=== PATIENT | female | born 2000 | race African-American/Black ===

== ENCOUNTER 2024-10-06 16:35 | Emergency (ER) | payer SELFPAY ==
[~2024-10-06] VITALS: Ht 162.6 cm; Wt 75.0 kg
[2024-10-06 18:35] VITALS: BP 132/78; PULSE 86; RESP 16; TEMP 97.5; O2SAT 98
[2024-10-06] MEDS ORDERED: ACET500T58 PO (18:35)
[2024-10-06] MEDS ORDERED: AMOX875T4 PO (18:35)
--- NOTE | 2024-10-06 18:35 | ED.PDOC ---
Eye-HPI HPI Comments 24-year-old female presents to ER with complaints of foreign body to throat x1 day. Patient reports that she was leaning back eating hot Cheetos at 3:30 p.m. prior to arrival to ER when she felt sensation of a hot Cheeto getting stuck in her throat that has been persistent since prompting her to come to ER for further evaluation. Denies choking. Patient presents to ER ambulatory on arrival, speaking in clear and complete sentences, in no distress with vitals stable and denies any pain. Notes she is able to swallow but does have sensation of foreign body to throat upon doing so. Denies shortness of breath, n/v, chest pain or any further symptoms/complaints Chief Complaint: Foreign Body Time Seen by MD: 18:04 Primary Care Provider: NONE Reviewed Notes: Nurses Notes, Medications, Allergies Allergies: Coded Allergies: NO KNOWN ALLERGIES (Unverified , 10/06/24) Home Meds Active Scripts Acetaminophen (Acetaminophen) 500 Mg Tab, 500 MG PO Q4HPRN, #30 TAB 0 Refills Prov:HAYLEY DAMON 10/06/24 Amoxicillin & Pot Clavulanate (Amoxicillin/Potassium Cla) 875 Mg Tab, 1 TAB PO BID for 7 Days, #14 TAB 0 Refills Prov:HAYLEY DAMON 10/06/24 Information Source: Patient Mode of Arrival: Ambulatory Past Medical History PAST MEDICAL HISTORY: Denies Surgical History: Denies all surgeries Family History Family History: Unknown Social History Lives In: Home Constitutional: denies: chills, diaphoresis, fatigue, fever, malaise, sweats, weakness, others EENTM: reports: others (As stated in HPI) Respiratory: denies: cough, hemoptysis, orthopnea, SOB at rest, shortness of breath, SOB with excertion, stridor, wheezing, others Cardiovascular: denies: chest pain, dizzy spells, diaphoresis, Dyspnea on exertion, edema, irregular heart beat, left arm pain, lightheadedness, palpitations, PND, syncope, others Gastrointestinal: denies: abdomen distended, abdominal pain, blood streaked bowels, constipated, diarrhea, dysphagia, difficulty swallowing, hematemesis, melena, nausea, poor appetite, poor fluid intake, rectal bleeding, rectal pain, vomiting, others Genitourinary: denies: abnormal vagina bleeding, burning, dyspareunia, dysuria, flank pain, frequency, hematuria, incontinence, pain, , vagina discharge, urgency, others Neurological: denies: dizziness, fainting, headache, left sided numbness, left sided weakness, numbness, paresthesia, pre-existing deficit, right sided numbness, right sided weakness, seizure, speech problems, tingling, tremors, weakness, others Musculoskeletal: denies: back pain, gout, joint pain, joint swelling, muscle pain, muscle stiffness, neck pain, others Integumetry: denies: bruises, change in color, change in hair/nails, dryness, laceration, lesions, lumps, rash, wounds, others Allergic/Immunocompromised: denies: Difficulty Healing, Frequent Infections, Hives, Itching, others Hematologic/Lymphatic: denies: anemia, blood clots, easy bleeding, easy bruising, swollen glands, others Endocrine: denies: excessive hunger, excessive sweating, excessive thirst, excessive urination, flushing, intolerance to cold, intolerance to heat, unexplained weight gain, unexplained weight loss, others Psychiatric: denies: anxiety, bipolar disorder, depression, hopeless, panic disorder, schizophrenia, sleepless, suicidal, others Physical Exam General Appearance: No Apparent Distress, Normal HEENT: PERRL/EOMI, Pharyngeal Erythema (Mild tonsillar swelling/erythema noted bilaterally with white exudates noted on right tonsil. No foreign body appreciated. Uvula-normal), TMs Normal Neck: Full Range of Motion, Non-Tender, Normal Respiratory: Chest Non-Tender, Lungs Clear, No Accessory Muscle Use, No Respiratory Distress, Normal Breath Sounds Cardiovascular: No Murmur, No Gallop, Regular Rate/Rhythm Breast Exam: Deferred Gastrointestinal: NOT DONE Genitalia: Deferred Pelvic: Deferred Rectal: Deferred Extremities: Normal capillary refill, Normal range of motion Neurologic: Alert, veterinary technology instructor II-XII nml as Tested, No Motor Deficits, Normal Affect, Normal Mood, No Sensory Deficits Cerebellar Function: Normal Reflexes: Normal Skin: Dry, Normal Color, Warm Lymphatic: No Adenopathy Was a procedure done? Was a procedure done?: No Sedation Sedation?: No EENT DIFF Eye: N/A Sore Throat: Epiglottitis, Mononeucleosis, Peritonsillar Abscess, Other (foreign body) X-Ray, Labs, Meds, VS Vital Signs Date Time Temp Pulse Resp B/P (MAP) Pulse Ox O2 Delivery O2 Flow Rate FiO2 10/06/24 18:35 97.5 86 16 132/78 (96) 98 97.5 10/06/24 18:35 86 16 98 Room Air 10/06/24 17:16 18 98 Room Air* 0 21 10/06/24 17:03 98.8 102 18 113/68 (83) 98 98.8 Current Medications Medications (Trade) Dose Ordered Sig/Helen Route Start Time Stop Time Status Last Admin Glucagon (Glucagen) 1 mg ONCE ONCE IM 10/06/24 18:45 10/06/24 18:46 DC 10/06/24 19:01 PATIENT: KOBI CALVO ACCT: [id number] UNIT: [id number] : 2000 LOC: ER ROOM / BED: / AGE / SEX: 24 / F ADM STATUS: REG ER SERVICE 1824 ORDERING PHYSICIAN: HAYLEY DAMON PROCEDURE(s): NKICT - NECK WITHOUT CONTRAST REASON: r/o foreign body ORDER NUMBER(s): [id number], ACCESSION NUMBER(s): [id number] EXAM: CT NECK WITHOUT CONTRAST INDICATION: r/o foreign body TECHNIQUE: Volumetric multidetector CT images of the cervical soft tissues were obtained after administration of 100 ml low osmolar intravenous contrast. All CT scans at this facility use dose modulation, iterative reconstruction, and/or weight based dosing when appropriate to reduce radiation dose to as low as reasonably achievable. COMPARISON: None FINDINGS: [ORBITS, PARANASAL SINUSES, AND SKULL BASE]: Normal. [NASOPHARYNX: Normal. [SUPRAHYOID NECK]: Significant prominence of the adenoid tonsils in bilateral palatine tonsils and lingual tonsils. No underlying drainable fluid collection. Mucosal pharyngeal fat plane appears intact. No retropharyngeal edema. In regards to the clinical question, no definitive radiopaque foreign body. The parotid and submandibular glands are normal. Prominence of the stylohyoid ligaments with calcification which may be a source of dysphagia. [INFRAHYOID NECK]: Normal appearance of the larynx, hypopharynx, and supraglottis. [THYROID]: Normal appearance of the thyroid gland. [LYMPH NODES]: There is no pathologically enlarged or necrotic lymph nodes. [VASCULATURE STRUCTURES]: The vascular structures of the neck appear patent. [OTHER]: The visualized lung apices are clear. The limited visualized portions of the brain are unremarkable. The osseous structures are unremarkable. IMPRESSION: 1. No evidence of cervical mass lesion, pathologically enlarged lymph nodes or fluid collection. 2. No definitive radiopaque foreign body. 3. Tonsillar enlargement and consider correlation for upper respiratory infection/tonsillitis no retropharyngeal abscess. ATED BY: DAVID SOMERS MD DICTATED DATE/TIME: 10/06/241914 SIGNED BY: DAVID SOMERS MD SIGNED DATE/TIME: 10/06/241914 CC: waiver sign Glucagon 1 mg IM ordered Rocephin [address] neck without contrast reviewed Patient had improvement in symptoms, tolerating p.o. intake well and in no distress prior to discharge Advised to drink plenty of fluids Advised to follow up with PCP in 1-2 days Patient verbalized understanding and agreeable with current plan of care Advised to return to ER immediately if symptoms worsen Images Reviewed?: Images reviewed and evaluated by me Time of 1ST Reevaluation: 18:44 Reevaluation 1ST: N/A Time of 2ND Reevaluation: 19:20 Reevaluation 2ND: Improved Patient Education/Counseling: Diagnosis, Treatment, Prognosis, Need For Follow Up Family Education/Counseling: No Family Present Departure 1 Departure Time of Disposition: 19:22 Impression: Primary Impression: Acute tonsillitis Qualified Codes: J03.90 - Acute tonsillitis, unspecified Additional Impression: Sensation of foreign body in throat Disposition: 01 HOME / SELF CARE / HOMELESS Condition: Stable e-Prescriptions Acetaminophen (Acetaminophen) 500 Mg Tab 500 MG PO Q4HPRN, #30 TAB 0 Refills Prov: HAYLEY DAMON 10/06/24 Amoxicillin & Pot Clavulanate (Amoxicillin/Potassium Cla) 875 Mg Tab 1 TAB PO BID for 7 Days, #14 TAB 0 Refills Prov: HAYLEY DAMON 10/06/24 Discharged With: Self Critical Care Note Critical Care Time?: No Stability Stability form required: No Heart Score Heart Score: Heart Score Response (Comments) Value History N/A 0 EKG N/A 0 Age N/A 0 Risk Factors N/A 0 Troponin N/A 0 Total 0 HAYLEY DAMON October 06, 2024 18:35
[2024-10-06] MEDS: GLUCAGON EMERG KIT 1mg/1ml IM ONE (19:01)
--- NOTE | 2024-10-06 19:17 | DVH ---
EXAM: CT NECK WITHOUT CONTRAST INDICATION: r/o foreign body TECHNIQUE: Volumetric multidetector CT images of the cervical soft tissues were obtained after admini stration of 100 ml low osmolar intravenous contrast. All CT scans at this facility use dose modulatio n, iterative reconstruction, and/or weight based dosing when appropriate to reduce radiation dose to as low as reasonably achievable. COMPARISON: None FINDINGS: [ORBITS, PARANASAL SINUSES, AND SKULL BASE]: Normal. [NASOPHARYNX: Normal. [SUPRAHYOID NECK]: Significant prominence of the adenoid tonsils in bilateral palatine tonsils and li ngual tonsils. No underlying drainable fluid collection. Mucosal pharyngeal fat plane appears intact . No retropharyngeal edema. In regards to the clinical question, no definitive radiopaque foreign bod y. The parotid and submandibular glands are normal. Prominence of the stylohyoid ligaments with calci fication which may be a source of dysphagia. [INFRAHYOID NECK]: Normal appearance of the larynx, hypopharynx, and supraglottis. [THYROID]: Normal appearance of the thyroid gland. [LYMPH NODES]: There is no pathologically enlarged or necrotic lymph nodes. [VASCULATURE STRUCTURES]: The vascular structures of the neck appear patent. [OTHER]: The visualized lung apices are clear. The limited visualized portions of the brain are unrem arkable. The osseous structures are unremarkable. IMPRESSION: 1. No evidence of cervical mass lesion, pathologically enlarged lymph nodes or fluid collection. 2. No definitive radiopaque foreign body. 3. Tonsillar enlargement and consider correlation for upper respiratory infection/tonsillitis no retr opharyngeal abscess.
[2024-10-06] MEDS ORDERED: cefTRIAXone SOD 1,000 MG VL IM ONE (19:30)
[2024-10-06] MEDS: cefTRIAXone SOD 1,000 MG VL ONE (19:49)
[2024-10-06] MEDS: LIDOCAINE 1% HCL (LOCAL ANESTH.) INJ 20ML MDV IJ ONE (19:49)
== END 2024-10-06 19:50 | disposition home or self-care (01) ==
LOC: ER 16:35
DX: J03.90 Acute tonsillitis, unspecified (principal); R09.A2 Foreign body sensation, throat; Z79.899 Other long term (current) drug therapy
CPT/HCPCS: 70490; 96372; 99285; J0696; J1610; J2003

== ENCOUNTER 2024-10-14 16:16 | Emergency (ER) | payer OTHER ==
[~2024-10-14] VITALS: Ht 162.6 cm; Wt 75.0 kg
[~2024-10-14 16:16] MED LIST: ACET500T58 PO; AMOX875T4 PO
--- NOTE | 2024-10-14 17:21 | ED.PDOC ---
Eye-HPI HPI Comments This is a 24 year old female presenting to the ED with chief complaint of throat swelling. Patient reports that she was seen last week for tonsillitis, being prescribed antibiotics. Patient relays that since then, her tonsils have been intermittently swelling along with associated itchiness in her throat and a cough. Patient states that she has taken the antibiotic every day, but is not finished with them. Patient denies any fever, sore throat, nasal congestion, headache, or dizziness. Chief Complaint: Sore Throat Time Seen by MD: 17:19 Primary Care Provider: NONE Reviewed Notes: Nurses Notes, Medications, Allergies Allergies: Coded Allergies: NO KNOWN ALLERGIES (Unverified , 10/06/24) Home Meds Active Scripts Acetaminophen (Acetaminophen) 500 Mg Tab, 500 MG PO Q4HPRN, #30 TAB 0 Refills Prov:HAYLEY DAMON 10/06/24 Amoxicillin & Pot Clavulanate (Amoxicillin/Potassium Cla) 875 Mg Tab, 1 TAB PO BID for 7 Days, #14 TAB 0 Refills Prov:HAYLEY DAMON 10/06/24 Information Source: Patient Mode of Arrival: Ambulatory Timing: Days Duration: Since onset Prehospital treatment: None Lids: Normal Conjunctiva: Normal Cornea: Normal Pupils: Normal EOM: Normal Fundus: Normal Anterior chamber: Normal Mouth Location: Pharynx Nose: Normal Sinuses: Normal Oropharynx: Tonsillar hypertrophy Onset: Spontaneous Throat Exposed to: None History of: None Past Medical History PAST MEDICAL HISTORY: Denies Surgical History: Denies all surgeries 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: No 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 Family History Family History: Reviewed,noncontributory to illness, Unknown Social History Smoker: Non-Smoker Alcohol: Occasionally Drugs: Marijuana Lives In: Home Constitutional: denies: chills, diaphoresis, fatigue, fever, malaise, sweats, weakness, others EENTM: reports: throat swelling; denies: blurred vision, double vision, ear bleeding, ear discharge, ear drainage, ear pain, ear ringing, eye pain, eye redness, hearing loss, mouth pain, mouth swelling, nasal discharge, nose bleeding, nose congestion, nose pain, photophobia, tearing, throat pain, voice changes, others Respiratory: reports: cough; denies: hemoptysis, orthopnea, SOB at rest, shortness of breath, SOB with excertion, stridor, wheezing, others Cardiovascular: denies: chest pain, dizzy spells, diaphoresis, Dyspnea on exertion, edema, irregular heart beat, left arm pain, lightheadedness, pal pitations, PND, syncope, others Gastrointestinal: denies: abdomen distended, abdominal pain, blood streaked bowels, constipated, diarrhea, dysphagia, difficulty swallowing, hematemesis, melena, nausea, poor appetite, poor fluid intake, rectal bleeding, rectal pain, vomiting, others Genitourinary: denies: abnormal vagina bleeding, burning, dyspareunia, dysuria, flank pain, frequency, hematuria, incontinence, pain, , vagina discharge, urgency, others Neurological: denies: dizziness, fainting, headache, left sided numbness, left sided weakness, numbness, paresthesia, pre-existing deficit, right sided numbness, right sided weakness, seizure, speech problems, tingling, tremors, weakness, others Musculoskeletal: denies: back pain, gout, joint pain, joint swelling, muscle pain, muscle stiffness, neck pain, others Integumetry: denies: bruises, change in color, change in hair/nails, dryness, laceration, lesions, lumps, rash, wounds, others Allergic/Immunocompromised: denies: Difficulty Healing, Frequent Infections, Hives, Itching, others Hematologic/Lymphatic: denies: anemia, blood clots, easy bleeding, easy b ruising, swollen glands, others Endocrine: denies: excessive hunger, excessive sweating, excessive thirst, excessive urination, flushing, intolerance to cold, intolerance to heat, unexplained weight gain, unexplained weight loss, others Psychiatric: denies: anxiety, bipolar disorder, depression, hopeless, panic disorder, schizophrenia, sleepless, suicidal, others All Other Systems: Reviewed and Negative Physical Exam General Appearance: No Apparent Distress HEENT: Normal ENT Inspection, Pharynx Normal, TMs Normal Neck: Full Range of Motion, Non-Tender, Normal, Normal Inspection Respiratory: Chest Non-Tender, Lungs Clear, No Accessory Muscle Use, No Respiratory Distress, Normal Breath Sounds Cardiovascular: No Edema, No JVD, No Murmur, No Gallop, Normal Peripheral Pulses, Regular Rate/Rhythm Breast Exam: Deferred Gastrointestinal: No Organomegaly, Non Tender, No Pulsatile Mass, Normal Bowel Sounds, Soft Genitalia: Deferred Pelvic: Deferred Rectal: Deferred Extremities: No calf tenderness, Normal capillary refill, Normal inspection, Normal range of motion, Non-tender, No pedal edema Musculoskeletal : Apperance: Normal Neurologic: Alert, braid maker II-XII nml as Tested, No Motor Deficits, Normal Affect, Normal Mood, No Sensory Deficits Cerebellar Function: Normal Reflexes: Normal Skin: Dry, Normal Color, Warm Lymphatic: No Adenopathy Was a procedure done? Was a procedure done?: No EENT DIFF Eye: Other (Pharyngitis, tonsillitis) X-Ray, Labs, Meds, VS Vital Signs Date Time Temp Pulse Resp B/P (MAP) Pulse Ox O2 Delivery O2 Flow Rate FiO2 10/14/24 16:43 99.0 94 16 120/71 (87) 99 99.0 At this time, the patient is being discharged and will continue taking the Augmentin The patient will return to the emergency department's condition worsens. The patient will follow up with the primary care doctor Time of 1ST Reevaluation: 17:28 Reevaluation 1ST: Unchanged Patient Education/Counseling: Diagnosis, Treatment, Prognosis, Need For Follow Up Family Education/Counseling: No Family Present Additional Information Reviewed patient's previous visit(s): 10/06/24 for tonsillitis The following tests were ordered, and results were reviewed by me: None Additional information was gathered from interviewing the following independent historian: NONE I reviewed and agreed with the following test results read by other provider: NONE I discussed treatments and results with medical personnel and: Patient Comprehensive systems review obtained and negative except for what is stated in the HPI. Departure 1 Departure Time of Disposition: 17:28 Impression: Primary Impression: Sensation of foreign body in throat Disposition: 01 HOME / SELF CARE / HOMELESS Condition: Fair Discharged With: Self Critical Care Note Critical Care Time?: No Stability Stability form required: No Heart Score Heart Score: Heart Score Response (Comments) Value History N/A 0 EKG N/A 0 Age N/A 0 Risk Factors N/A 0 Troponin N/A 0 Total 0 I personally scribed for LUIS FRANCO MD ([email or web address]) on 10/14/24 at 17:21. Electronically submitted by Orlando Martinez ([email or web address]). LUIS FRANCO MD Oct 14, 2024 17:21
[2024-10-14 17:50] VITALS: BP 105/60; PULSE 83; RESP 14; TEMP 99; O2SAT 97
== END 2024-10-14 17:55 | disposition home or self-care (01) ==
LOC: ER 16:16
DX: R09.A2 Foreign body sensation, throat (principal); F12.90 Cannabis use, unspecified, uncomplicated

== ENCOUNTER 2024-10-18 17:23 | Emergency (ER) | payer SELFPAY ==
[~2024-10-18] VITALS: Ht 162.6 cm; Wt 73.5 kg
--- NOTE | 2024-10-18 18:34 | ED.PDOC ---
Eye-HPI HPI Comments 24 year old female presents to ER with complaints of foreign body sensation in throat x 12 days. Patient states she's had sensation of foreign body in throat x 12 days. Patient was seen in ER here at onset of symptoms and had a CT scan done of neck done at that time that revealed tonsillitis and finished Augmentin antibiotics as prescribed without relief. She denies any pain. Patient presents to ER ambulatory on arrival, with steady, in no distress, with vitals stable and states she is able to swallow liquids/solids but does have sensation of foreign body to throat upon doing so. Denies fever, shortness of breath, nausea/vomiting, choking, chest pain or any further symptoms/complaints Chief Complaint: Sore Throat Time Seen by MD: 18:07 Primary Care Provider: UNKNOWN Reviewed Notes: Nurses Notes, Medications, Allergies Allergies: Coded Allergies: NO KNOWN ALLERGIES (Unverified , 10/06/24) Home Meds Active Scripts Acetaminophen (Acetaminophen) 500 Mg Tab, 500 MG PO Q4HPRN, #30 TAB 0 Refills Prov:HAYLEY DAMON 10/06/24 Amoxicillin & Pot Clavulanate (Amoxicillin/Potassium Cla) 875 Mg Tab, 1 TAB PO BID for 7 Days, #14 TAB 0 Refills Prov:HAYLEY DAMON 10/06/24 Information Source: Patient Mode of Arrival: Ambulatory Past Medical History PAST MEDICAL HISTORY: Denies Surgical History: Denies all surgeries 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 Family History Family History: Unknown Social History Smoker: Non-Smoker Alcohol: Occasionally Drugs: Marijuana Lives In: Home Constitutional: denies: chills, diaphoresis, fatigue, fever, malaise, sweats, weakness, others EENTM: reports: others (As stated in HPI) Respiratory: denies: cough, hemoptysis, orthopnea, SOB at rest, shortness of breath, SOB with excertion, stridor, wheezing, others Cardiovascular: denies: chest pain, dizzy spells, diaphoresis, Dyspnea on exe rtion, edema, irregular heart beat, left arm pain, lightheadedness, palpitations, PND, syncope, others Gastrointestinal: denies: abdomen distended, abdominal pain, blood streaked bowels, constipated, diarrhea, dysphagia, difficulty swallowing, hematemesis, melena, nausea, poor appetite, poor fluid intake, rectal bleeding, rectal pain, vomiting, others Genitourinary: denies: abnormal vagina bleeding, burning, dyspareunia, dysuria, flank pain, frequency, hematuria, incontinence, pain, , vagina discharge, urgency, others Neurological: denies: dizziness, fainting, headache, left sided numbness, left sided weakness, numbness, paresthesia, pre-existing deficit, right sided numbness, right sided weakness, seizure, speech problems, tingling, tremors, weakness, others Musculoskeletal: denies: back pain, gout, joint pain, joint swelling, muscle pain, muscle stiffness, neck pain, others Integumetry: denies: bruises, change in color, change in hair/nails, dryness, laceration, lesions, lumps, rash, wounds, others Allergic/Immunocompromised: denies: Difficulty Healing, Frequent Infections, Hives, Itching, others Hematologic/Lymphatic: denies: anemia, blood clots, easy bleeding, easy bruising, swollen glands, others Endocrine: denies: excessive hunger, excessive sweating, excessive thirst, excessive urination, flushing, intolerance to cold, intolerance to heat, unexplained weight gain, unexplained weight loss, others Psychiatric: denies: anxiety, bipolar disorder, depression, hopeless, panic disorder, schizophrenia, sleepless, suicidal, others Physical Exam General Appearance: No Apparent Distress, Normal HEENT: Normal ENT Inspection, PERRL/EOMI, Pharynx Normal (No tonsillar swelling/ foreign body appreciated. Normal thorat examination), TMs Normal Neck: Full Range of Motion, Non-Tender, Normal Respiratory: Chest Non-Tender, Lungs Clear, No Accessory Muscle Use, No Respiratory Distress, Normal Breath Sounds Cardiovascular: No Murmur, No Gallop, Regular Rate/Rhythm Breast Exam: Deferred Gastrointestinal: NOT DONE Genitalia: Deferred Pelvic: Deferred Rectal: Deferred Extremities: Normal capillary refill, Normal range of motion Neurologic: Alert, deflash and wash operator II-XII nml as Tested, No Motor Deficits, Normal Affect, Normal Mood, No Sensory Deficits Cerebellar Function: Normal Reflexes: Normal Skin: Dry, Normal Color, Warm Lymphatic: No Adenopathy Was a procedure done? Was a procedure done?: No Sedation Sedation?: No EENT DIFF Eye: N/A Sore Throat: Epiglottitis, Mononeucleosis, Peritonsillar Abscess, Peritonsillar Cellulitis, Other (foreign body) X-Ray, Labs, Meds, VS Vital Signs Date Time Temp Pulse Resp B/P (MAP) Pulse Ox O2 Delivery O2 Flow Rate FiO2 10/18/24 17:33 98.5 86 17 127/72 (90) 100 98.5 Patient tolerating p.o. intake well and in no distress prior to discharge Previous chart visits reviewed Advised to follow up with PCP and ENT in 1-2 days Patient verbalized understanding and agreeable with current plan of care Advised to return to ER immediately if symptoms worsen Time of 1ST Reevaluation: 18:12 Reevaluation 1ST: N/A Patient Education/Counseling: Diagnosis, Treatment, Prognosis, Need For Follow Up Family Education/Counseling: No Family Present Departure 1 Departure Time of Disposition: 18:32 Impression: Primary Impression: Sensation of foreign body in throat Disposition: 01 HOME / SELF CARE / HOMELESS Condition: Stable Discharged With: Self Critical Care Note Critical Care Time?: No Stability Stability form required: No Heart Score Heart Score: Heart Score Response (Comments) Value History N/A 0 EKG N/A 0 Age N/A 0 Risk Factors N/A 0 Troponin N/A 0 Total 0 HAYLEY DAMON Oct 18, 2024 18:34
[2024-10-18 18:40] VITALS: BP 124/86; PULSE 68; RESP 16; TEMP 98.3; O2SAT 98
== END 2024-10-18 18:44 | disposition home or self-care (01) ==
LOC: ER 17:23
DX: R09.A2 Foreign body sensation, throat (principal); F12.90 Cannabis use, unspecified, uncomplicated